=== PATIENT | male | born 1970 | race Caucasian/White ===

== ENCOUNTER 2017-03-06 09:01 | Outpatient (CLI) | payer BC, OTHER ==
[2017-03-06 12:32] LABS: Cardiac Risk 2.9 (Less than 4.5)
== END 2017-03-06 09:02 | disposition home or self-care (01) ==
LOC: NAVSJIPCSP 09:01
PROVIDERS: ATTEND Internal Medicine
DX: E78.5 Hyperlipidemia, unspecified (principal)
CPT/HCPCS: 36415; 80061

== ENCOUNTER 2017-03-20 20:02 | Emergency (ER) | payer BC ==
[2017-03-20] MEDS ORDERED: Ondansetron HCl/PF 4 MG/2 ML Vial ONE ×2 (20:15→20:18)
[2017-03-20] MEDS ORDERED: Ketorolac Tromethamine 30 MG/ML VIAL ONE (20:16)
[2017-03-20 20:44] LABS: #Basophils 0.2 thou/uL (0.0-0.2); #Eosinphils 0.2 thou/uL (0.0-0.7); #Lymphocytes 5.5 thou/uL (1.20-3.40); #Monocytes 1.3 thou/uL (0.11-0.59); #Neutrophils 6.5 thou/uL (1.40-6.50); %Basophils 1.5 % (0.0-1.0); %Eosinophils 1.8 % (0.0-10.0); %Lymphocytes 40.2 % (21.0-51.0); %Monocytes 9.3 % (0.0-10.0); %Neutrophils 47.3 % (42.0-75.0); Hemoglobin 15.7 g/dL (14.0-18.0); Mean Corpuscular HGB CONC 33.1 g/dL (32.0-36.0); Mean Corpuscular Hemoglobin 31.1 pg (27.0-31.0); Mean Platelet Volume 7.4 fL (7.4-10.4); Platelet Count 290 thou/uL (130-400); RBC Distribution Width 11.1 % (11.5-14.5); Red Blood Cell (RBC) Count 5.06 mill/uL (4.70-6.10); White Blood Cell (WBC) Count 13.7 thou/uL (4.8-10.8)
[2017-03-20 20:58] LABS: ALT (SGPT) 19 U/L (8-55); AST (SGOT) 15 U/L (5-34); Albumin 4.3 g/dL (3.5-5.0); Alkaline Phosphatase 43 U/L (40-150); Anion Gap 19 mmol/L (10-20); BUN (Urea Nitrogen) 18 mg/dL (8.9-20.6); Bilirubin, Total 0.6 mg/dL (0.2-1.2); Calc. Creatinine Clearance 0 mL/min (70-130); Calcium 9.5 mg/dL (7.8-10.44); Carbon Dioxide 22 mmol/L (22-29); Chloride 99 mmol/L (98-107); Estimated GFR-MDRD 63; Globulin 3.1 g/dL (2.4-3.5); Glucose 95 mg/dL (70-105); Potassium 3.7 mmol/L (3.5-5.1); Protein, Total 7.4 g/dL (6.0-8.3); Sodium 136 mmol/L (136-145)
[2017-03-20 22:01] LABS: Bilirubin Negative (Negative); Blood, Urine Negative (Negative); Clarity Clear (Clear); Glucose, Urine (Dipstick) Negative (Negative); Leukocyte Negative (Negative); Nitrite Negative (Negative); Protein, Urine (Dipstick) Trace mg/dL (Neg-Trace); Urobilinogen 0.2 mg/dL (0.2-1.0)
[2017-03-20] MEDS ORDERED: Sodium Chloride 0.9% 100 ML ONE (22:06)
[2017-03-20] MEDS ORDERED: cefTRIAXone\\ROCEPHIN 1 GM VIAL ONE (22:06)
[2017-03-20] MEDS ORDERED: HYDROcodone/Acetaminophen 10/325 mg Tablet ONE (22:06)
--- NOTE | 2017-03-20 23:44 | CT ---
ABDOMEN CT WITHOUT CONTRAST PELVIC CT WITHOUT CONTRAST 03/20/17 HISTORY: Right lower quadrant pain, vomiting and diarrhea. COMPARISON: CT angiogram abdominal aorta and runoff 07/19/16. TECHNIQUE: Abdomen and pelvic CT are performed without contrast. Coronal reformatted image are submitted for in terpretation. FINDINGS: ABDOMEN CT: Lung bases are clear. Heart size is normal. No significant pericardial fluid. Descending thoracic ao rta and the abdominal aorta have an overall normal caliber. No periaortic fat stranding. The gallbladder is surgically sent. Limited evaluation of the solid organs due to the lack of IV contrast administration. No solid organ abnormality. No gastrohepatic, retrocrural, or periportal lymphadenopathy. No mesenteric mass, lymphadenopathy, free air, or free fluid. Bilaterally, no hydronephrosis or perinephric fat stranding. There are punctate nonobstructing 1 to 2 mm calculi in both renal pelvises. Bilateral ureters have a normal caliber. No hydroureter, periur eteral fat stranding or ureterolithiasis. Limited evaluation of the alimentary canal due to lack of oral contrast. Gastric mucosa, duodenum an d multiple normal caliber small bowel loops are noted. Retrocecal appendix is normal caliber. Scatte red fecal material in a nondistended, nondilated colon. Occasional diverticulum. No diverticulitis. PELVIC CT: No mass, lymphadenopathy, free air or free fluid. Urinary bladder is unremarkable. There are no osteoblastic or osteolytic lesions. IMPRESSION: 1. Bilateral nonobstructing punctate intrarenal calculi. Bilaterally, no obstructive uropathy. 2. Normal caliber retrocecal appendix. POS: [facility]
== END 2017-03-20 22:55 | disposition home or self-care (01) ==
LOC: NAV ERS 20:02
DX: N20.0 Calculus of kidney (principal); K21.9 Gastro-esophageal reflux disease without esophagitis; Z87.891 Personal history of nicotine dependence
CPT/HCPCS: 74176; 80053; 81003; 85025; 96361; 96365; 96375; J0696; J1885; J2270; J2405; J7050